=== PATIENT | male | born 2000 | race Caucasian/White ===

== ENCOUNTER 2023-05-24 12:58 | Emergency (ER) | payer BC, SELFPAY ==
[2023-05-24 13:32] VITALS: BP 126/81; PULSE 62; RESP 16; TEMP 36.3; O2SAT 99
--- NOTE | 2023-05-24 14:34 | ED.EYEPROB ---
HPI - Eye Problem General Chief complaint: Eye Problems Stated complaint: Eye pain Source: patient Mode of arrival: ambulatory Limitations: no limitations History of Present Illness HPI Narrative: 22-year-old male presented for complaint of left eye irritation x2 hours. Reports feeling brief pain to the left upper eyelid while working on his car and states it has felt irritated since then. Denies FB sensation or drainage, vision changes, or photophobia. Irrigated the eye with water. MD chief complaint: eye pain Related Data Allergies Allergy/AdvReac Type Severity Reaction Status Date / Time No Known Allergies Allergy Unverified 05/24/23 13:34 Review of Systems Review of Systems: CONSTITUTIONAL: Denies body aches, fever, chills EYES: Endorses redness and FB sensation to left eye; denies swelling, photophobia, visual changes ENT: Denies rhinorrhea, congestion, sore throat, or otalgia. CARDIOVASCULAR: Denies chest pain, palpitations RESPIRATORY: Denies cough or dyspnea. GASTROINTESTINAL: Denies abdominal pain, nausea, vomiting, or diarrhea. SKIN: Denies rash, itching, or wounds. MUSCULOSKELETAL: Denies back pain, joint pain, or myalgia. NEUROLOGIC: Denies headache, numbness, tingling, or weakness. All systems reviewed & are unremarkable except as noted in HPI and below PMFSH Past Medical History Medical History (Updated 05/24/23 @ 19:53 by Yamini Shah, [place]) No pertinent past medical history Comments At time of signature, I have reviewed and agree with nursing past medical, surgical, social and family history unless otherwise noted. Please see nursing chart for further information. There is no relevant family history pertinent to the presenting complaint Exam Narrative: GENERAL: Well-appearing HEAD: Normocephalic, atraumatic. EYES: mild left conjunctival injection. No eye lid swelling/redness/drainage. PERRLA, EOMI. Lid eversion shows no FB. No corneal abrasion on gallegos lamp exam ENT: Mucous membranes pink and moist. No rhinorrhea. TMs normal bilaterally. Throat normal. Uvula midline. CHEST: Clear to auscultation. HEART: Regular rate and rhythm. ABDOMEN: Soft, nontender, nondistended SKIN: Warm, dry, no rash. Normal skin turgor. NEURO: No focal deficits. Alert and oriented x3 PSYCH: Normal affect. Course Course Emergency Course: Patient is aware of diagnosis, understands and agrees to treatment plan. Anticipatory guidance given. Patient agrees to follow-up as directed and is aware of reasons to seek care at the emergency department. Portions of this record may have been created with voice recognition software Level of Care: Express Care Visit Vital Signs Vital signs: Vital Signs Temperature 97.3 F L 05/24/23 13:32 Pulse Rate 62 05/24/23 13:32 Respiratory Rate 16 05/24/23 13:32 Blood Pressure 126/81 05/24/23 13:32 Pulse Oximetry 99 05/24/23 13:32 Temperature 97.3 F L 05/24/23 13:32 Pulse Rate 62 05/24/23 13:32 Respiratory Rate 16 05/24/23 13:32 Blood Pressure 126/81 05/24/23 13:32 Pulse Oximetry 99 05/24/23 13:32 Procedures FB Removal Eye Foreign Body #1: Foreign Body Removal Date: 05/24/23 Location: eye (L) MDM - Eye Problem MDM Narrative Medical decision making narrative: Discussed physical exam findings, no Corneal abrasion or FB on exam. Advised supportive measures and signs/symptoms to go to the ER. Pt is appropriate for outpt treatment and f/u. Differential Diagnosis Differential diagnosis: Likely corneal abrasion, conjunctivitis, acute iritis and other Discharge Plan Discharge Clinical Impression: Irritation of left eye Patient Disposition: Home, Self-Care Condition: Stable Instructions: Antibiotic Form, Corneal Abrasion (ED), Eye Foreign Body (ED) Additional Instructions: Avoid touching or rubbing your eye. Use over the counter lubricating eye drops as needed for irritation Use a warm or c
== END 2023-05-24 15:00 | disposition home or self-care (01) ==
PROVIDERS: Emergency Provider Nurse Practitioner Family
DX: H57.12 Ocular pain, left eye (principal)
CPT/HCPCS: 99203; A9270; G0463